=== PATIENT | male | born 1940 | race Caucasian/White ===

== ENCOUNTER 2024-04-27 14:33 | Emergency (ER) | payer OTHER ==
[~2024-04-27] VITALS: Ht 170.2 cm; Wt 69.4 kg
[2024-04-27 15:01] VITALS: BP 136/104
[2024-04-27] MEDS ORDERED: ATOR20 PO (15:17)
[2024-04-27] MEDS ORDERED: HYDROcodone 5-APAP 325 TAB PO ONE (15:40)
[2024-04-27] MEDS ORDERED: Lidocaine 4% 1 Patch TOP ONE (15:40)
== END 2024-04-27 16:09 | disposition home or self-care (01) ==
LOC: ER 14:33
DX: R07.81 Pleurodynia (principal); E11.9 Type 2 diabetes mellitus without complications; I10 Essential (primary) hypertension; Z88.0 Allergy status to penicillin; Z88.5 Allergy status to narcotic agent; Z88.6 Allergy status to analgesic agent
CPT/HCPCS: 71101; 99283-25; A9270